=== PATIENT | female | born 1940 | race American Indian/Alaskan Native ===

== ENCOUNTER 2018-08-30 10:58 | Inpatient (IN) | payer MEDICARE, MEDICAID ==
[2018-08-30] MEDS ORDERED: NACL 0.9% 1000 ML 1,000 ML IV ONE (11:34)
--- NOTE | 2018-08-30 11:48 | Emergency Department Report ---
HPI - General Chief Complaint: Nausea/Vomiting/Diarrhea Time Seen by Provider: 08/30/18 11:35 - HPI HPI: 78-year-old female presents to the emergency department via EMS from her home, with her daughter at bedside, with a complaint of progressive weakness, weight loss, decreased appetite, nausea, and suspicion of failure to thrive. The patient does have a history of hypertension and presents with elevated blood pressure. It does not appear that the patient has been taking her blood pressure medications recently as she has been unable to eat or drink anything. The patient says that she is hungry and thirsty but when she tries to consume anything she gets "sick." The daughter says that she has always been a thin individual but that she has lost a lot of weight recently. The patient lives at home with her grandson who is having to assist more and more with the activities daily living. The patient has been having increased urinary frequency and has been going through multiple depends each day. She has been going through multiple different primary care physicians and recently has some for a home visit. ED Past Medical Hx - Past Medical History Previous Medical History?: Yes Hx Hypertension: Yes Hx CVA: Yes (no deficits) - Surgical History Past Surgical History?: No - Social History Smoking Status: Never Smoker Substance Use Type: None - Medications Home Medications: Home Medications Medication Instructions Recorded Confirmed Last Taken Type Bisoprolol-Hctz 10-6.25 mg Tab 1 each PO DAILY 08/30/18 08/30/18 Unknown History amLODIPine [Norvasc] 10 mg PO DAILY 08/30/18 08/30/18 Unknown History ED Review of Systems ROS: Stated complaint: N/V Other details as noted in HPI Comment: All other systems reviewed and negative Constitutional: weakness. denies: chills, fever Eyes: denies: eye pain, vision change ENT: denies: ear pain, throat pain Respiratory: denies: cough, shortness of breath Cardiovascular: denies: chest pain, palpitations Gastrointestinal: nausea. denies: diarrhea Genitourinary: denies: dysuria, discharge Musculoskeletal: denies: back pain, arthralgia Skin: denies: rash, lesions Neurological: weakness. denies: headache Physical Exam - Physical Exam Vital Signs: Vital Signs 08/30/18 11:29 Temperature 97.7 F Pulse Rate 66 Respiratory 22 Rate Blood Pressure 185/86 Physical Exam: GENERAL: Patient is frail and cachectic appearing. HEENT: Normocephalic. Atraumatic. Patient has moist mucous membranes. EYES: Extraocular motions are intact. Pupils are equal and reactive to light bilaterally. NECK: Supple. Trachea is midline. CHEST/LUNGS: Clear to auscultation. There is no respiratory distress noted. HEART/CARDIOVASCULAR: Regular. There is no tachycardia. There is no obvious murmur. ABDOMEN: Abdomen is soft, nontender. Patient has normal bowel sounds. SKIN: Skin is warm and dry. NEURO: The patient is awake, alert, and cooperative. The patient has no focal neurologic deficits. The patient has normal speech. MUSCULOSKELETAL: There is no tenderness or deformity. There is no evidence of acute injury. ED Course Vital Signs 08/30/18 11:29 Temperature 97.7 F Pulse Rate 66 Respiratory 22 Rate Blood Pressure 185/86 ED Medical Decision Making - Lab Data Result diagrams: 08/30/18 11:52 08/30/18 12:35 - EKG Data -: EKG Interpreted by Id EKG shows normal: sinus rhythm, axis, intervals (slightly prolonged QT and QTC intervals), QRS complexes (Q waves to the anterior leads, LVH), ST-T waves (nonspecific ST-T waves) Rate: normal - EKG Data When compared to previous EKG there are: previous EKG unavailable Interpretation: other (sinus rhythm, normal axis, slightly prolonged QT and QTC intervals, Q waves to the anterior leads, LVH) - Radiology Data Radiology results: report reviewed CT HEAD WITHOUT CONTRAST: HISTORY: Weakness. TECHNIQUE: Sequential 2.5mm CT images. COMPARISON: none. FINDINGS: Cerebral Parenchyma: Moderate diffuse volume loss and chronic white matter changes are identified. Chronic cortical infarct in the right frontal lobe measures 2.2 cm. Larger chronic cortical infarct in the right parietal lobe measures up to 5.4 cm. No obvious acute ischemia is appreciated on noncontrast CT. Cerebellum: Chronic 1 cm infarct in the superior right cerebellum is noted. The left cerebellum is unremarkable. Brainstem: Within normal limits. Ventricles: Normal. Sella: Normal. Extra-axial spaces: Normal. Basal Cisterns: Normal. Intracranial Hemorrhage: None. Midline Shift: None. Calvarium: Normal. Sinuses: Normal. Mastoid Air Cells: Normal. Visualized Orbits: Normal. IMPRESSION: Volume loss. Chronic white matter changes. Multiple chronic infarcts as described above. No acute intracranial process is identified. Transcribed By: TTR Dictated By: ELAINE GONZALES JR, MD Electronically Authenticated By: ELAINE GONZALES JR, MD Signed Date/Time: 08/30/18 1514 - Medical Decision Making This patient presents to the emergency department with the complaint of dehydration, malnourishment, generalized weakness. The patient is awake and alert but says that she is unable to drink or eat as it makes her "sick." The patient apparently was always a thin individual but she appears frail and cachectic and weighs about 75 pounds at this time. Labs are mostly unremarkable except for there are some signs of dehydration and malnourishment. She has low albumin. She is starting to develop some renal insufficiency and has signs of prerenal azotemia. I do not feel that the patient is safe for discharge back to her home as she is not able to complete her ADLs given her current state. She will be admitted to the hospital for further evaluation and treatment and was accepted for admission by the hospitalist, Dr. Briones. - Differential Diagnosis dehydration, malnourishment, electrolyte abnormalities Critical Care Time: No Critical care attestation.: If time is entered above; I have spent that time in minutes in the direct care of this critically ill patient, excluding procedure time. ED Disposition Clinical Impression: Dehydration Hypertension Qualifiers: Hypertension type: essential hypertension Qualified Code(s): I10 - Essential (primary) hypertension Failure to thrive Qualifiers: Failure to thrive age range: in adult Qualified Code(s): R62.7 - Adult failure to thrive Protein calorie malnutrition Qualifiers: Protein-calorie malnutrition severity: unspecified severity Qualified Code(s): E46 - Unspecified protein-calorie malnutrition Disposition: OP ADMIT IP TO THIS HOSP Is pt being admited?: Yes Condition: Fair Time of Disposition: 14:56
[2018-08-30 12:40] LABS: Basophils % (Auto) 0.3 % (0.0-1.8); Eosinophils % (Auto) 0.1 % (0.0-4.3); Hematocrit 42.7 % (30.3-42.9); Lymphocytes # (Auto) 1.5 K/mm3 (1.2-5.4); Lymphocytes % (Auto) 20.8 % (13.4-35.0); Mean Corpuscular HGB Conc 35 % (30-34); Mean Corpuscular Volume 89 fl (79-97); Monocytes # (Auto) 0.3 K/mm3 (0.0-0.8); Monocytes % (Auto) 4.1 % (0.0-7.3); Platelet Count 208 K/mm3 (140-440); Red Blood Count 4.78 M/mm3 (3.65-5.03); Red Cell Distribution Width 13.8 % (13.2-15.2)
[2018-08-30] MEDS ORDERED: APRESOLINE IV ONE ×2 (12:42→18:01)
[2018-08-30 13:11] LABS: Alanine Aminotransferase 13 units/L (7-56); BUN/Creatinine Ratio 40; Blood Urea Nitrogen 44 mg/dL (7-17); Calcium 9.2 mg/dL (8.4-10.2); Hemolysis Index 4; Prealbumin 0.158 g/L (0.200-0.400)
[2018-08-30 13:53] LABS: Mucus,Urine FEW /HPF; WBC,Urine < 1.0 /HPF (0.0-6.0)
[2018-08-30 13:54] LABS: Bilirubin,Urine NEG (Negative); Blood,Urine NEG (Negative); Color,Urine Yellow (Yellow); Protein,Urine <15 mg/dL mg/dL (Negative); Urobilinogen,Urine < 2.0 mg/dL (<2.0)
--- NOTE | 2018-08-30 15:17 | Cat Scan Report ---
CT HEAD WITHOUT CONTRAST: HISTORY: Weakness. TECHNIQUE: Sequential 2.5mm CT images. COMPARISON: none. FINDINGS: Cerebral Parenchyma: Moderate diffuse volume loss and chronic white matter changes are identified. Chronic cortical infarct in the right frontal lobe measures 2.2 cm. Larger chronic cortical infarct in the right parietal lobe measures up to 5.4 cm. No obvious acute ischemia is appreciated on noncontrast CT. Cerebellum: Chronic 1 cm infarct in the superior right cerebellum is noted. The left cerebellum is unremarkable. Brainstem: Within normal limits. Ventricles: Normal. Sella: Normal. Extra-axial spaces: Normal. Basal Cisterns: Normal. Intracranial Hemorrhage: None. Midline Shift: None. Calvarium: Normal. Sinuses: Normal. Mastoid Air Cells: Normal. Visualized Orbits: Normal. IMPRESSION: Volume loss. Chronic white matter changes. Multiple chronic infarcts as described above. No acute intracranial process is identified.
[2018-08-30] MEDS ORDERED: APRESOLINE ONE (16:27)
--- NOTE | 2018-08-30 21:47 | History and Physical Report ---
History of Present Illness Date of examination: 08/30/18 Date of admission: 08/30/18 14:56 Chief complaint: Progressive weakness and unable to take care of herself for 2 weeks History of present illness: 78-year-old female presents to the emergency department for progressive weakness and weight loss and decreased appetite.Unable to do ADL's as per daughter.The patient lives with her grandson.Till 2 weeks ago patient has been able to take care of herself.Since 2 weeks there has been rapid detrioration in her ability to go to bathroom eating and dressing wtc.Lost lot of weight over last 6 months of about 30 lbs.She normally weighs around 95 to 100 lbs as per daughter.Now she is weighing 68 lbs.Nausea presint.No fever or chills.No recent travel.Has history of HTN and CVA .Not taking her BP meds.As per daughter also progressive loss of memory.Not on any meds for dementia.Had stroke remotely but no residual deficits. Past Medical History Hypertension: Yes CVA: Yes (no deficits) Surgical History No Social History Smoking Status: Never Smoker Substance Use Type: None Family History Htn Medications Home Medications: Home Medications Medication Instructions Recorded Confirmed Last Taken Type Bisoprolol-Hctz 10-6.25 mg Tab 1 each PO DAILY 08/30/18 08/30/18 Unknown History amLODIPine [Norvasc] 10 mg PO DAILY 08/30/18 08/30/18 Unknown History Review of Systems ROS: Stated complaint: N/V Other details as noted in HPI Comment: All other systems reviewed and negative Constitutional: weakness. denies: chills, fever Eyes: denies: eye pain, vision change ENT: denies: ear pain, throat pain Respiratory: denies: cough, shortness of breath Cardiovascular: denies: chest pain, palpitations Gastrointestinal: nausea. denies: diarrhea Genitourinary: denies: dysuria, discharge Musculoskeletal: denies: back pain, arthralgia Skin: denies: rash, lesions Neurological: weakness. denies: headache Medications and Allergies Allergies Allergy/AdvReac Type Severity Reaction Status Date / Time codeine Allergy Unknown Verified 08/31/18 01:54 Home Medications Medication Instructions Recorded Confirmed Last Taken Type Bisoprolol-Hctz 10-6.25 mg Tab 1 each PO DAILY 08/30/18 08/30/18 Unknown History amLODIPine [Norvasc] 10 mg PO DAILY 08/30/18 08/30/18 Unknown History Exam - Constitutional Vitals: Temp Pulse Resp BP Pulse Ox 98.2 F 65 20 148/63 100 08/30/18 20:58 08/30/18 20:58 08/30/18 20:58 08/30/18 20:58 08/30/18 20:01 General appearance: Present: no acute distress, well-nourished - EENT Eyes: Present: PERRL ENT: hearing intact, clear oral mucosa - Neck Neck: Present: supple, normal ROM - Respiratory Respiratory effort: normal Respiratory: bilateral: CTA - Cardiovascular Heart rate: 65 Rhythm: regular Heart Sounds: Present: S1 & S2. Absent: rub, click - Extremities Extremities: no ischemia, pulses intact, pulses symmetrical, No edema Peripheral Pulses: within normal limits - Abdominal General gastrointestinal: Present: soft, non-tender, non-distended, normal bowel sounds Female genitourinary: Present: normal - Integumentary Integumentary: Present: clear, warm, dry - Musculoskeletal Musculoskeletal: strength equal bilaterally, generalized weakness, other (MME 10/20) - Psychiatric Psychiatric: appropriate mood/affect - Neurologic Neurologic: CNII-XII intact, moves all extremities - Allied Health Allied health notes reviewed: nursing, case management Results - Labs CBC & Chem 7: 08/30/18 11:52 08/30/18 12:35 Labs: Laboratory Last Values WBC 7.4 K/mm3 (4.5-11.0) 08/30/18 11:52 RBC 4.78 M/mm3 (3.65-5.03) 08/30/18 11:52 Hgb 15.0 gm/dl (10.1-14.3) H 08/30/18 11:52 Hct 42.7 % (30.3-42.9) 08/30/18 11:52 MCV 89 fl (79-97) 08/30/18 11:52 MCH 31 pg (28-32) 08/30/18 11:52 MCHC 35 % (30-34) H 08/30/18 11:52 RDW 13.8 % (13.2-15.2) 08/30/18 11:52 Plt Count 208 K/mm3 (140-440) 08/30/18 11:52 Lymph % (Auto) 20.8 % (13.4-35.0) 08/30/18 11:52 [place] % (Auto) 4.1 % (0.0-7.3) 08/30/18 11:52 Eos % (Auto) 0.1 % (0.0-4.3) 08/30/18 11:52 Baso % (Auto) 0.3 % (0.0-1.8) 08/30/18 11:52 Lymph # 1.5 K/mm3 (1.2-5.4) 08/30/18 11:52 [place] # 0.3 K/mm3 (0.0-0.8) 08/30/18 11:52 Eos # 0.0 K/mm3 (0.0-0.4) 08/30/18 11:52 Baso # 0.0 K/mm3 (0.0-0.1) 08/30/18 11:52 Seg Neutrophils % 74.7 % (40.0-70.0) H 08/30/18 11:52 Seg Neutrophils # 5.6 K/mm3 (1.8-7.7) 08/30/18 11:52 Sodium 137 mmol/L (137-145) 08/30/18 12:35 Potassium 4.3 mmol/L (3.6-5.0) 08/30/18 12:35 Chloride 99.6 mmol/L (98-107) 08/30/18 12:35 Carbon Dioxide 23 mmol/L (22-30) 08/30/18 12:35 Anion Gap 19 mmol/L 08/30/18 12:35 BUN 44 mg/dL (7-17) H 08/30/18 12:35 Creatinine 1.1 mg/dL (0.7-1.2) 08/30/18 12:35 Estimated GFR 58 ml/min 08/30/18 12:35 BUN/Creatinine Ratio 40 % 08/30/18 12:35 Glucose 87 mg/dL (65-100) 08/30/18 12:35 Calcium 9.2 mg/dL (8.4-10.2) 08/30/18 12:35 Total Bilirubin 0.80 mg/dL (0.1-1.2) 08/30/18 12:35 AST 11 units/L (5-40) 08/30/18 12:35 ALT 13 units/L (7-56) 08/30/18 12:35 Alkaline Phosphatase 46 units/L (35-129) 08/30/18 12:35 Troponin T < 0.010 ng/mL (0.00-0.029) 08/30/18 12:35 Total Protein 6.2 g/dL (6.3-8.2) L 08/30/18 12:35 Albumin 4.0 g/dL (3.9-5) 08/30/18 12:35 Albumin/Globulin Ratio 1.8 % 08/30/18 12:35 Prealbumin 0.158 g/L (0.200-0.400) L 08/30/18 12:35 Lipase 37 units/L (13-60) 08/30/18 12:35 Urine Color Yellow (Yellow) 08/30/18 Unknown Urine Turbidity Clear (Clear) 08/30/18 Unknown Urine pH 5.0 (5.0-7.0) 08/30/18 Unknown Ur Specific [place] 1.011 (1.003-1.030) 08/30/18 Unknown Urine Protein <15 mg/dl mg/dL (Negative) 08/30/18 Unknown Urine Glucose (UA) Neg mg/dL (Negative) 08/30/18 Unknown Urine Ketones Tr mg/dL (Negative) 08/30/18 Unknown Urine Blood Neg (Negative) 08/30/18 Unknown Urine Nitrite Neg (Negative) 08/30/18 Unknown Urine Bilirubin Neg (Negative) 08/30/18 Unknown Urine Urobilinogen < 2.0 mg/dL (<2.0) 08/30/18 Unknown Ur Leukocyte Esterase Neg (Negative) 08/30/18 Unknown Urine WBC (Auto) < 1.0 /HPF (0.0-6.0) 08/30/18 Unknown Urine RBC (Auto) Not Reportable 08/30/18 Unknown Urine Mucus Few /HPF 08/30/18 Unknown - Imaging and Cardiology EKG: report reviewed (NSR 65/min LVH ) Assessment and Plan Advance Directives: Yes (Full code) VTE prophylaxis?: Chemical Plan of care discussed with patient/family: Yes - Patient Problems (1) Failure to thrive Current Visit: Yes Status: Acute Qualifiers: Failure to thrive age range: in adult Qualified Code(s): R62.7 - Adult failure to thrive Plan to address problem: Patient with no identifiable pathology like malignancy. Loosing weight rapidly and unable to do ADL's Needs Physical therapy Mental health eval and dietitian consult SNF placement as grandson and daughter unable to take care of her. Case management consulted (2) Hypertension Current Visit: Yes Status: Chronic Qualifiers: Hypertension type: essential hypertension Qualified Code(s): I10 - Essential (primary) hypertension Plan to address problem: Resume antihypertensives Stopped Ziac and initiated Coreg (3) Protein calorie malnutrition Current Visit: Yes Status: Chronic Qualifiers: Protein-calorie malnutrition severity: severe Qualified Code(s): E43 - Unspecified severe protein-calorie malnutrition Plan to address problem: Dietitian consult Loosing weight rapidly (4) Dehydration Current Visit: Yes Status: Acute Plan to address problem: IV fluids for now (5) Physical debility Current Visit: Yes Status: Acute Plan to address problem: Needs PT/OT (6) Dementia Current Visit: Yes Status: Chronic Qualifiers: Dementia type: unspecified type Plan to address problem: add Namenda and Aricept at low dose (7) DVT prophylaxis Current Visit: Yes Status: Acute Plan to address problem: On Lovenox and GI prophylaxis
[2018-08-30] MEDS ORDERED: SODIUM CHLORIDE FLUSH SYRINGE 10 ML IV PRN (21:48)
[2018-08-30] MEDS ORDERED: DILAUDID IV PRN (21:48)
[2018-08-30] MEDS ORDERED: TYLENOL PO PRN (21:48)
[2018-08-30] MEDS ORDERED: ZOFRAN IV PRN (21:48)
[2018-08-30] MEDS ORDERED: NORVASC PO SCH (22:00)
[2018-08-30] MEDS: LOVENOX SUB-Q SCH (23:55)
[2018-08-30] MEDS: COREG PO SCH (23:55)
[2018-08-30] MEDS: PEPCID IV SCH (23:55)
[2018-08-30] MEDS: SODIUM CHLORIDE FLUSH SYRINGE 10 ML IV SCH (23:56)
[2018-08-31] MEDS: NORVASC PO SCH ×2 (00:14→13:05)
[2018-08-31 06:25] LABS: Basophils % (Auto) 0.3 % (0.0-1.8); Eosinophils % (Auto) 0.1 % (0.0-4.3); Hematocrit 39.6 % (30.3-42.9); Hemoglobin 13.5 gm/dl (10.1-14.3); Lymphocytes # (Auto) 1.6 K/mm3 (1.2-5.4); Lymphocytes % (Auto) 23.1 % (13.4-35.0); Mean Corpuscular HGB Conc 34 % (30-34); Mean Corpuscular Volume 91 fl (79-97); Monocytes # (Auto) 0.4 K/mm3 (0.0-0.8); Monocytes % (Auto) 5.1 % (0.0-7.3); Platelet Count 181 K/mm3 (140-440); Red Blood Count 4.36 M/mm3 (3.65-5.03); Red Cell Distribution Width 13.7 % (13.2-15.2)
[2018-08-31 06:55] LABS: Alanine Aminotransferase 10 units/L (7-56); Albumin 3.4 g/dL (3.9-5); BUN/Creatinine Ratio 38; Blood Urea Nitrogen 34 mg/dL (7-17); Calcium 8.7 mg/dL (8.4-10.2); Hemolysis Index 8
[2018-08-31] MEDS: COREG PO SCH ×2 (11:04→21:54)
--- NOTE | 2018-08-31 11:18 | Progress Note ---
Assessment and Plan Assessment and plan: 1) Failure to thrive Patient with no identifiable pathology like malignancy. Loosing weight rapidly and unable to do ADL's Needs Physical therapy Mental health eval and dietitian consult SNF placement as grandson and daughter unable to take care of her. Case management consulted (2) Hypertension Resume antihypertensives Stopped Ziac and initiated Coreg (3) Protein calorie malnutrition Dietitian consult Loosing weight rapidly (4) Dehydration IV fluids for now (5) Physical debility Needs PT/OT (6) Dementia add Namenda and Aricept at low dose (7) DVT prophylaxis On Lovenox and GI prophylaxis Discharge planning per case management Possible rehabilitation versus SNF When medically stable Plan of care reviewed with the patient family member at the bedside and the notes History Interval history: Patient seen and examined medical records reviewed Complaints of generalized weakness Severely malnourished cachectic Vital signs noted Hospitalist Physical - Constitutional Vitals: Temp Pulse Resp BP Pulse Ox 97.5 F L 72 20 100/59 98 08/31/18 07:35 08/31/18 07:35 08/31/18 07:35 08/31/18 07:35 08/31/18 07:35 General appearance: Present: no acute distress, cachectic, disheveled, other (very malnourished) - EENT Eyes: Present: PERRL, EOM intact - Neck Neck: Present: supple, normal ROM - Respiratory Respiratory effort: normal Respiratory: bilateral: diminished, negative: rales, rhonchi, wheezing - Cardiovascular Rhythm: regular - Extremities Extremities: no ischemia, No edema - Abdominal General gastrointestinal: soft, non-tender, non-distended, normal bowel sounds - Integumentary Integumentary: Present: clear, warm - Psychiatric Psychiatric: appropriate mood/affect, other (confused) - Neurologic Neurologic: other (residual weakness) Results - Labs CBC & Chem 7: 08/31/18 05:53 08/31/18 05:53 Labs: Laboratory Last Values WBC 7.0 K/mm3 (4.5-11.0) 08/31/18 05:53 RBC 4.36 M/mm3 (3.65-5.03) 08/31/18 05:53 Hgb 13.5 gm/dl (10.1-14.3) 08/31/18 05:53 Hct 39.6 % (30.3-42.9) 08/31/18 05:53 MCV 91 fl (79-97) 08/31/18 05:53 MCH 31 pg (28-32) 08/31/18 05:53 MCHC 34 % (30-34) 08/31/18 05:53 RDW 13.7 % (13.2-15.2) 08/31/18 05:53 Plt Count 181 K/mm3 (140-440) 08/31/18 05:53 Lymph % (Auto) 23.1 % (13.4-35.0) 08/31/18 05:53 [place] % (Auto) 5.1 % (0.0-7.3) 08/31/18 05:53 Eos % (Auto) 0.1 % (0.0-4.3) 08/31/18 05:53 Baso % (Auto) 0.3 % (0.0-1.8) 08/31/18 05:53 Lymph # 1.6 K/mm3 (1.2-5.4) 08/31/18 05:53 [place] # 0.4 K/mm3 (0.0-0.8) 08/31/18 05:53 Eos # 0.0 K/mm3 (0.0-0.4) 08/31/18 05:53 Baso # 0.0 K/mm3 (0.0-0.1) 08/31/18 05:53 Seg Neutrophils % 71.4 % (40.0-70.0) H 08/31/18 05:53 Seg Neutrophils # 5.0 K/mm3 (1.8-7.7) 08/31/18 05:53 Sodium 138 mmol/L (137-145) 08/31/18 05:53 Potassium 3.8 mmol/L (3.6-5.0) 08/31/18 05:53 Chloride 104.5 mmol/L (98-107) 08/31/18 05:53 Carbon Dioxide 21 mmol/L (22-30) L 08/31/18 05:53 Anion Gap 16 mmol/L 08/31/18 05:53 BUN 34 mg/dL (7-17) H 08/31/18 05:53 Creatinine 0.9 mg/dL (0.7-1.2) 08/31/18 05:53 Estimated GFR > 60 ml/min 08/31/18 05:53 BUN/Creatinine Ratio 38 % 08/31/18 05:53 Glucose 180 mg/dL (65-100) H 08/31/18 05:53 Hemoglobin A1c 5.4 % (4-6) 08/30/18 22:20 Calcium 8.7 mg/dL (8.4-10.2) 08/31/18 05:53 Total Bilirubin 0.70 mg/dL (0.1-1.2) 08/31/18 05:53 AST 11 units/L (5-40) 08/31/18 05:53 ALT 10 units/L (7-56) 08/31/18 05:53 Alkaline Phosphatase 39 units/L (35-129) 08/31/18 05:53 Troponin T < 0.010 ng/mL (0.00-0.029) 08/30/18 12:35 Total Protein 5.5 g/dL (6.3-8.2) L 08/31/18 05:53 Albumin 3.4 g/dL (3.9-5) L 08/31/18 05:53 Albumin/Globulin Ratio 1.6 % 08/31/18 05:53 Prealbumin 0.158 g/L (0.200-0.400) L 08/30/18 12:35 Lipase 37 units/L (13-60) 08/30/18 12:35 Urine Color Yellow (Yellow) 08/30/18 Unknown Urine Turbidity Clear (Clear) 08/30/18 Unknown Urine pH 5.0 (5.0-7.0) 08/30/18 Unknown Ur Specific [place] 1.011 (1.003-1.030) 08/30/18 Unknown Urine Protein <15 mg/dl mg/dL (Negative) 08/30/18 Unknown Urine Glucose (UA) Neg mg/dL (Negative) 08/30/18 Unknown Urine Ketones Tr mg/dL (Negative) 08/30/18 Unknown Urine Blood Neg (Negative) 08/30/18 Unknown Urine Nitrite Neg (Negative) 08/30/18 Unknown Urine Bilirubin Neg (Negative) 08/30/18 Unknown Urine Urobilinogen < 2.0 mg/dL (<2.0) 08/30/18 Unknown Ur Leukocyte Esterase Neg (Negative) 08/30/18 Unknown Urine WBC (Auto) < 1.0 /HPF (0.0-6.0) 08/30/18 Unknown Urine RBC (Auto) Not Reportable 08/30/18 Unknown Urine Mucus Few /HPF 08/30/18 Unknown Active Medications - Current Medications Current Medications: Generic Name Dose Route Start Last Admin Trade Name Freq PRN Reason Stop Dose Admin Acetaminophen 650 mg 08/30/18 21:48 08/31/18 00:14 Tylenol PO 650 mg Q4H PRN Administration Pain MILD(1-3)/Fever >100.5/MOONEY Amlodipine Besylate 10 mg 08/30/18 22:00 08/31/18 00:14 Norvasc PO 10 mg DAILY KORY Administration Carvedilol 6.25 mg 08/30/18 22:00 08/30/18 23:55 Coreg PO 6.25 mg BID KORY Administration Donepezil HCl 5 mg 08/31/18 22:00 Aricept PO QHS KORY Enoxaparin Sodium 40 mg 08/30/18 22:00 08/30/18 23:55 Lovenox SUB-Q 40 mg QDAY@2200 KORY Administration Famotidine 20 mg 08/30/18 22:00 08/30/18 23:55 Pepcid IV 20 mg BID KORY Administration Hydromorphone HCl 0.25 mg 08/30/18 21:48 Dilaudid IV Q3H PRN Pain, Moderate (4-6) Dextrose/Sodium Chloride 1,000 mls @ 75 mls/hr 08/30/18 22:00 D5ns IV DIRECT KORY Memantine 5 mg 08/31/18 10:00 Namenda PO QDAY KORY Ondansetron HCl 4 mg 08/30/18 21:48 Zofran IV Q8H PRN Nausea And Vomiting Sodium Chloride 10 ml 08/30/18 22:00 08/30/18 23:56 Sodium Chloride Flush Syringe 10 Ml IV 10 ml BID KORY Administration Sodium Chloride 10 ml 08/30/18 21:48 Sodium Chloride Flush Syringe 10 Ml IV PRN PRN LINE FLUSH
[2018-08-31] MEDS: PEPCID IV SCH ×2 (12:58→21:53)
[2018-08-31] MEDS: NAMENDA PO SCH (13:05)
[2018-08-31] MEDS: D5NS 1,000 ML IV SCH (13:10)
[2018-08-31] MEDS: SODIUM CHLORIDE FLUSH SYRINGE 10 ML IV SCH ×2 (13:12→21:54)
[2018-08-31] MEDS: LOVENOX SUB-Q SCH (21:54)
[2018-08-31] MEDS ORDERED: LOVENOX SUB-Q SCH (22:00)
[2018-08-31] MEDS ORDERED: ARICEPT PO SCH (22:00)
[2018-09-01] MEDS: D5NS 1,000 ML IV SCH (05:25)
[2018-09-01] MEDS: NAMENDA PO SCH (09:12)
[2018-09-01] MEDS: COREG PO SCH (09:12)
[2018-09-01] MEDS: SODIUM CHLORIDE FLUSH SYRINGE 10 ML IV SCH (09:13)
[2018-09-01] MEDS: NORVASC PO SCH (09:13)
[2018-09-01] MEDS ORDERED: PEPCID PO SCH (10:00)
[2018-09-01 13:50] VITALS: BP 117/45
--- NOTE | 2018-09-01 17:04 | Discharge Summary ---
Providers - Providers Date of Admission: 08/30/18 14:56 Date of discharge: 09/01/18 Attending physician: RODGER BORDEN 08/30/18 Consult to Case Management [CONS] Routine Services Needed at Discharge: Home Health Services Notified:: DIVINA Comment:: rehabilitation placement 08/30/18 21:48 Physical Therapy Evaluation and Treat [CONS] Routine Comment: Reason For Exam: severe debility 08/31/18 05:31 Occupational Therapy Evaluate and Treat [CONS] Routine Comment: Reason For Exam: severe debility [facility] Reason for admission: generalized weakness/failure to thrive in an adult Condition: Fair Pertinent studies: CT head without contrast Hospital course: 78-year-old female patient severely malnourished cachectic Was admitted through emergency room with generalized weakness And failure to thrive, patient was noted to be severely dehydrated Admitted to hospital symptomatically managed IV hydration physical therapy Supportive care Case management has evaluated the patient and recommended home health Today patient is comfortable, chronically looking Vital signs noted Physical examination today is unremarkable Patient is stable at discharge Advised to encourage plenty of oral fluids and diet Advised nutritional supplements with boost/multivitamins/Ensure Plus As tolerated, patient advised Megace to boost her appetite Discharge diagnosis; --Failure to thrive; Nutrition supplements, Megace --Hypertension Continue Coreg --Severe malnutrition; nutrition supplements Boost/Ensure Plus, supportive care --General debility ; Encourage oral nutrition , home physical therapy as needed --Dehydration ; improved , advised pain by mouth fluids Received IV fluids --Dementia: Continue Namenda and Aricept at low dose --DVT prophylaxis Received Lovenox and GI prophylaxis Disposition: DC-30 STILL A PATIENT Time spent for discharge: 32 min Core Measure Documentation - Palliative Care Palliative Care/ Comfort Measures: Not Applicable - Core Measures Any of the following diagnoses?: none Exam - Constitutional Vitals: Temp Pulse Resp BP Pulse Ox 98.0 F 78 20 117/45 98 09/01/18 13:40 09/01/18 13:40 09/01/18 15:00 09/01/18 13:40 09/01/18 15:00 General appearance: Present: no acute distress, well-nourished - EENT Eyes: Present: PERRL, EOM intact - Neck Neck: Present: supple, normal ROM - Respiratory Respiratory effort: normal Respiratory: bilateral: diminished, negative: rales, rhonchi, wheezing - Cardiovascular Rhythm: regular Heart Sounds: Present: S1 & S2 - Extremities Extremities: no ischemia, No edema - Abdominal General gastrointestinal: Present: soft, non-tender, non-distended - Integumentary Integumentary: Present: clear, warm - Musculoskeletal Musculoskeletal: generalized weakness - Psychiatric Psychiatric: cooperative - Neurologic Neurologic: moves all extremities Plan Activity: advance as tolerated, fall precautions Diet: regular Special Instructions: physical therapy Additional Instructions: Fall precautions. Advised nutritional supplements like boost/Ensure Plus 3 times a day [facility] [Primary Care Provider] - 3-5 Days Prescriptions: Donepezil [Aricept] 5 mg PO QHS #30 tablet Carvedilol [Coreg] 6.25 mg PO BID #60 tablet Memantine [Namenda] 5 mg PO QDAY #30 tablet Famotidine [Pepcid] 10 mg PO BID #30 tablet
[2018-09-01] MEDS ORDERED: LOVENOX SUB-Q SCH (22:00)
== END 2018-09-01 20:00 | disposition home health service (06) | DRG 4 ==
LOC: ED 10:58 → 2B-ACE 14:56
PROVIDERS: ADMIT Internal Medicine; ATTEND Internal Medicine
PROC: 0B1 Respiratory System, Bypass (ICD-10-PCS; principal; 2018-08-31)
DX: R62.7 Adult failure to thrive (principal); E43 Unspecified severe protein-calorie malnutrition; Z68.1 Body mass index [BMI] 19.9 or less, adult; E86.0 Dehydration; I10 Essential (primary) hypertension; F03.90 Unspecified dementia, unspecified severity, without behavioral disturbance, psychotic disturbance, mood disturbance, and anxiety; R53.81 Other malaise; Z86.73 Personal history of transient ischemic attack (TIA), and cerebral infarction without residual deficits; Z82.49 Family history of ischemic heart disease and other diseases of the circulatory system; Z88.5 Allergy status to narcotic agent
CPT/HCPCS: 36415; 70450; 80053; 81001; 83036; 83690; 84134; 84484; 85025; 93005; 93010; G0378; J0360; J1650; J7030; J7042

== ENCOUNTER 2018-11-09 18:44 | Emergency (ER) | payer MEDICARE ==
--- NOTE | 2018-11-09 19:14 | Event Note ---
ED Screening Note ED Screening Note: pt presents for urinary frequency that began 5-6 weeks has generalized weakness no V/D last had a BM three days ago PMHx CVA, HTN non smoker no drinker no drug use This initial assessment/diagnostic orders/clinical plan/treatment(s) is/are subject to change based on patients health status, clinical progression and re- assessment by fellow clinical providers in the ED. Further treatment and workup at subsequent clinical providers discretion. Patient/guardian urged not to elope from the ED as their condition may be serious if not clinically assessed and managed. Initial orders include: labs, UA, XR abd
--- NOTE | 2018-11-09 20:13 | XRay Report ---
PROCEDURE: XR ABDOMEN 2V TECHNIQUE: Supine and erect views of the abdomen HISTORY: constipation x 3 days COMPARISONS: None . FINDINGS: The bowel gas pattern is nonspecific. No free air is identified. Soft tissues have no evidence for ma ss shadows or calcifications. The bony structures are intact. IMPRESSION: Nonspecific, nonobstructive bowel gas pattern with no acute process noted. This document is electronically signed by Lisy Schneider MD., November 09 2018 08:11:09 PM ET
[2018-11-09 20:19] LABS: Basophils # (Auto) 0.1 K/mm3 (0.0-0.1); Basophils % (Auto) 0.9 % (0.0-1.8); Eosinophils % (Auto) 0.3 % (0.0-4.3); Hematocrit 41.6 % (30.3-42.9); Hemoglobin 14.2 gm/dl (10.1-14.3); Lymphocytes # (Auto) 2.2 K/mm3 (1.2-5.4); Lymphocytes % (Auto) 30.7 % (13.4-35.0); Mean Corpuscular HGB Conc 34 % (30-34); Mean Corpuscular Volume 91 fl (79-97); Monocytes # (Auto) 0.3 K/mm3 (0.0-0.8); Monocytes % (Auto) 4.2 % (0.0-7.3); Red Blood Count 4.56 M/mm3 (3.65-5.03); Red Cell Distribution Width 14.6 % (13.2-15.2)
[2018-11-09 20:57] LABS: Platelet Count 163 K/mm3 (140-440)
[2018-11-09 21:12] LABS: Alanine Aminotransferase 35 units/L (7-56); Albumin 4.4 g/dL (3.9-5); BUN/Creatinine Ratio 25; Blood Urea Nitrogen 20 mg/dL (7-17); Calcium 9.5 mg/dL (8.4-10.2); Hemolysis Index 74
--- NOTE | 2018-11-09 23:00 | Emergency Department Report ---
ED General Adult HPI - General Chief complaint: Back Pain/Injury Stated complaint: BACK PAIN/CANT STAND Time Seen by Provider: 11/09/18 19:12 Source: patient, family Mode of arrival: Wheelchair Limitations: Physical Limitation - History of Present Illness Initial comments: Patient is a 78-year-old female that presents emergency room with complaints of frequent urination. Patient states she's been having difficulty urinating for a long time. Patient states recently though he's having some burning when she urinates started 2 weeks ago. Patient states she is also having lower back pain but she's had this lower back pain for 2 years. Patient states her back pain is a 5 out of 10 and is better with rest and worse with movement. History per family and patient. Patient is A&O 2. She has a history of dementia. -: Sudden Severity scale (0 -10): 0 Consistency: intermittent Improves with: rest Worsens with: movement - Related Data Previous Rx's Medication Instructions Recorded Last Taken Type Carvedilol [Coreg] 6.25 mg PO BID #60 tablet 09/01/18 Unknown Rx Donepezil [Aricept] 5 mg PO QHS #30 tablet 09/01/18 Unknown Rx Famotidine [Pepcid] 10 mg PO BID #30 tablet 09/01/18 Unknown Rx Megestrol [Megace] 20 mg PO BID #30 tablet 09/01/18 Unknown Rx Memantine [Namenda] 5 mg PO QDAY #30 tablet 09/01/18 Unknown Rx Sulfamethoxazole/Trimethoprim 1 each PO BID 10 Days #20 tablet 11/10/18 Unknown Rx [Bactrim DS TAB] Allergies Allergy/AdvReac Type Severity Reaction Status Date / Time codeine Allergy Unknown Verified 11/09/18 18:44 ED Review of Systems ROS: Stated complaint: BACK PAIN/CANT STAND Other details as noted in HPI Constitutional: denies: chills, fever Eyes: denies: eye pain, eye discharge, vision change ENT: denies: ear pain, throat pain Respiratory: denies: cough, shortness of breath, wheezing Cardiovascular: denies: chest pain, palpitations Endocrine: no symptoms reported Gastrointestinal: denies: abdominal pain, nausea, diarrhea Genitourinary: urgency, dysuria, frequency. denies: discharge Musculoskeletal: back pain. denies: joint swelling, arthralgia Skin: denies: rash, lesions Neurological: denies: headache, weakness, paresthesias Psychiatric: denies: anxiety, depression Hematological/Lymphatic: denies: easy bleeding, easy bruising ED Past Medical Hx - Past Medical History Previous Medical History?: Yes Hx Hypertension: Yes Hx CVA: Yes (no deficits) Hx Dementia: Yes - Surgical History Past Surgical History?: No - Family History Family history: no significant - Social History Smoking Status: Never Smoker Substance Use Type: None - Medications Home Medications: Home Medications Medication Instructions Recorded Confirmed Last Taken Type Carvedilol [Coreg] 6.25 mg PO BID #60 tablet 09/01/18 Unknown Rx Donepezil [Aricept] 5 mg PO QHS #30 tablet 09/01/18 Unknown Rx Famotidine [Pepcid] 10 mg PO BID #30 tablet 09/01/18 Unknown Rx Megestrol [Megace] 20 mg PO BID #30 tablet 09/01/18 Unknown Rx Memantine [Namenda] 5 mg PO QDAY #30 tablet 09/01/18 Unknown Rx Sulfamethoxazole/Trimethoprim 1 each PO BID 10 Days #20 tablet 11/10/18 Unknown Rx [Bactrim DS TAB] ED Physical Exam - General Limitations: Altered Mental Status, Physical Limitation General appearance: alert, in no apparent distress - Head Head exam: Present: atraumatic, normocephalic - Eye Eye exam: Present: normal appearance - ENT ENT exam: Present: mucous membranes moist - Neck Neck exam: Present: normal inspection - Respiratory Respiratory exam: Present: normal lung sounds bilaterally. Absent: respiratory distress, wheezes, rales - Cardiovascular Cardiovascular Exam: Present: regular rate, normal rhythm. Absent: systolic murmur, diastolic murmur, rubs, gallop - GI/Abdominal GI/Abdominal exam: Present: soft, normal bowel sounds. Absent: distended, tenderness, guarding - Rectal Rectal exam: Present: deferred - Extremities Exam Extremities exam: Present: normal inspection, full ROM. Absent: tenderness - Back Exam Back exam: Present: normal inspection, full ROM. Absent: tenderness, CVA tenderness (R) - Neurological Exam Neurological exam: Present: alert, altered (patient is oriented to place and person) - Psychiatric Psychiatric exam: Present: normal affect, normal mood - Skin Skin exam: Present: warm, dry, intact, normal color. Absent: rash ED Course Vital Signs 11/09/18 11/09/18 11/09/18 19:14 22:15 23:01 Temperature 97.6 F 98 F Pulse Rate 76 70 65 Respiratory 18 18 15 Rate Blood Pressure 179/65 140/89 Blood Pressure 142/84 [Left] O2 Sat by Pulse 99 98 98 Oximetry - Reevaluation(s) Reevaluation #1: Discussed all results with patient and family. Patient will be discharged home. Patient stable for discharge. Patient and family agree with plan of care. I discussed discharge instructions with patient and family. family voiced understanding of discharge instructions. 11/10/18 00:31 ED Medical Decision Making - Lab Data Result diagrams: 11/09/18 20:05 11/09/18 20:00 - Radiology Data Radiology results: report reviewed PROCEDURE: XR ABDOMEN 2V TECHNIQUE: Supine and erect views of the abdomen HISTORY: constipation x 3 days COMPARISONS: None . FINDINGS: The bowel gas pattern is nonspecific. No free air is identified. Soft tissues have no evidence for mass shadows or calcifications. The bony structures are intact. IMPRESSION: Nonspecific, nonobstructive bowel gas pattern with no acute process noted. - Medical Decision Making Patient is a 78-year-old female that presents emergency room for urinary symptoms and chronic back pain. Patient found to have UTI. Patient's labs unremarkable except for UA. Patient given antibiotics. Patient stable for discharge. Patient will be discharged to the care of her family.. - Differential Diagnosis UTI. Urine frequency. Dysuria. chronic back pain Critical care attestation.: If time is entered above; I have spent that time in minutes in the direct care of this critically ill patient, excluding procedure time. ED Disposition Clinical Impression: Urinary frequency, Dysuria Back pain Qualifiers: Back pain location: low back pain Chronicity: chronic Back pain laterality: midline Sciatica presence: without sciatica Qualified Code(s): M54.5 - Low back pain; G89.29 - Other chronic pain UTI (urinary tract infection) Qualifiers: Urinary tract infection type: acute cystitis Hematuria presence: with hematuria Qualified Code(s): N30.01 - Acute cystitis with hematuria Disposition: TO HOME OR SELFCARE Is pt being admited?: No Does the pt Need Aspirin: No Condition: Stable Instructions: Urinary Tract Infection in Women (ED), Dysuria (ED), Chronic Back Pain (ED) Additional Instructions: Patient to follow-up with primary care in 2-3 days. Patient to follow-up with urologist within 2-3 days. Patient to take Tylenol or ibuprofen when necessary for pain. Patient to return to ER if condition worsens. Patient to take meds as directed. Patient to increase water. Patient to rest. Patient to continue all meds. Prescriptions: Sulfamethoxazole/Trimethoprim [Bactrim DS TAB] 1 each PO BID 10 Days #20 tablet Referrals: LORNE HURTADO MD [Primary Care Provider] - 2-3 Days Time of Disposition: 00:36
[2018-11-10 00:02] LABS: Bacteria,Urine 1+ /HPF (Negative); Bilirubin,Urine NEG (Negative); Blood,Urine NEG (Negative); Color,Urine Yellow (Yellow); Mucus,Urine 3+ /HPF; Protein,Urine <15 mg/dL mg/dL (Negative); Urobilinogen,Urine < 2.0 mg/dL (<2.0)
[2018-11-10] MEDS ORDERED: ROCEPHIN IM ONE (00:36)
[2018-11-10] MEDS ORDERED: XYLOCAINE 1% MPF 5 mL INFILTRATI ONE (00:36)
[2018-11-10 01:24] VITALS: BP 113/85
== END 2018-11-10 01:24 | disposition home or self-care (01) ==
LOC: ED 18:44
DX: N30.01 Acute cystitis with hematuria (principal); M54.5 Low back pain; G89.29 Other chronic pain; I10 Essential (primary) hypertension; F03.90 Unspecified dementia, unspecified severity, without behavioral disturbance, psychotic disturbance, mood disturbance, and anxiety; Z86.73 Personal history of transient ischemic attack (TIA), and cerebral infarction without residual deficits; Z88.6 Allergy status to analgesic agent
CPT/HCPCS: 36415; 74019; 80053; 81001; 85025; 87076; 87086; 87186; 96372; 99284; J0696